=== PATIENT | female | born 1960 | race Caucasian/White ===

== ENCOUNTER 2016-07-05 14:28 | Emergency (ER) | payer MEDICAID ==
[~2016-07-05] VITALS: Ht 160 cm; Wt 71.7 kg
[2016-07-05 16:15] LABS: BASOPHIL % 0.3 % (0-2); PLATELET COUNT 226 x10^3mcL (130-400); RED CELL DISTRIBUTION WIDTH 14.1 % (11.5-14.5)
[2016-07-05 16:21] LABS: microscopic required? NO
[2016-07-05 16:31] LABS: CALCIUM 9.6 mg/dL (8.5-10.1); CARBON DIOXIDE 24.6 mmol/L (21-32); CHLORIDE SERUM 101 mmol/L (98-107); CREATININE SERUM 0.8 mg/dL (0.6-1.0); GFR1 > 60 mL/min; GLUCOSE SERUM 168 mg/dL (74-106); POTASSIUM SERUM 3.2 mmol/L (3.5-5.1); SODIUM SERUM 139 mmol/L (136-145)
[2016-07-05 16:42] LABS: ALBUMIN 4.3 g/dL (3.4-5.0); ALKALINE PHOSPHATASE 125 U/L (46-116); ALT/SGPT 28 U/L (14-59); AST/SGOT 26 U/L (15-37); BILIRUBIN TOTAL 0.53 mg/dL (0.20-1.00)
[2016-07-05 16:43] LABS: T3 TOTAL 1.19 ng/mL; TOTAL PROTEIN, SERUM 8.9 g/dL (6.4-8.2)
[2016-07-05 16:43] LABS: urine erythrocyte NEGATIVE (NEGATIVE)
[2016-07-05 16:47] LABS: CK-MB < 0.5 ng/mL (0-3.6); CREATINE KINASE 107 U/L (26-192); FREE T4 1.32 ng/dL (0.76-1.46); T4(THYROXINE) 11.7 ug/dL (4.7-13.3)
[2016-07-05 18:15] LABS: ERYTHROCYTE SED RATE 33 mm/hr (0-30)
[2016-07-05 20:41] VITALS: BP 112/62
== END 2016-07-05 20:41 | disposition home or self-care (01) ==
LOC: ED 14:28
PROVIDERS: Specialist
DX: R10.13 Epigastric pain (principal); R11.10 Vomiting, unspecified; M79.1 Myalgia; R51 Headache; R50.9 Fever, unspecified; E66.9 Obesity, unspecified; I10 Essential (primary) hypertension; E78.5 Hyperlipidemia, unspecified
CPT/HCPCS: 36600; 83880; 84439; C9113; J1885; J2405; J3010; J7030; Q0092

== ENCOUNTER 2017-11-06 10:48 | Emergency (ER) | payer MEDICAID ==
[2017-11-06 10:53] VITALS: BP 168/93; Ht 160 cm
== END 2017-11-06 12:41 | disposition home or self-care (01) ==
LOC: ED 10:48
DX: S81.812A Laceration without foreign body, left lower leg, initial encounter (principal); S81.811A Laceration without foreign body, right lower leg, initial encounter; I10 Essential (primary) hypertension; E11.9 Type 2 diabetes mellitus without complications; E78.00 Pure hypercholesterolemia, unspecified; W22.8XXA Striking against or struck by other objects, initial encounter; Y93.H2 Activity, gardening and landscaping; Y92.89 Other specified places as the place of occurrence of the external cause; Y99.8 Other external cause status
CPT/HCPCS: 90715

== ENCOUNTER 2017-12-09 15:19 | Emergency (ER) | payer MEDICAID ==
[~2017-12-09] VITALS: Ht 160 cm; Wt 72.1 kg
[2017-12-09 15:22] VITALS: BP 143/75; Ht 160 cm; Wt 72.1 kg
== END 2017-12-09 16:22 | disposition home or self-care (01) ==
LOC: ED 15:19
DX: S81.811D Laceration without foreign body, right lower leg, subsequent encounter (principal); I10 Essential (primary) hypertension; E11.9 Type 2 diabetes mellitus without complications; E78.00 Pure hypercholesterolemia, unspecified

== ENCOUNTER 2018-12-20 16:16 | Emergency (ER) | payer MEDICAID ==
[~2018-12-20] VITALS: Ht 162.6 cm; Wt 73.9 kg
[2018-12-20 16:26] VITALS: Ht 162.6 cm; Wt 73.9 kg
[2018-12-20 17:33] LABS: CALCIUM 7.5 mg/dL (8.5-10.1); CARBON DIOXIDE 26.5 mmol/L (21-32); CHLORIDE SERUM 103 mmol/L (98-107); CREATININE SERUM 0.9 mg/dL (0.6-1.0); GFR1 > 60 mL/min; GLUCOSE SERUM 261 mg/dL (74-106); POTASSIUM SERUM 4.7 mmol/L (3.5-5.1); SODIUM SERUM 137 mmol/L (136-145)
[2018-12-20 17:38] LABS: BASOPHIL % 0.2 % (0-2); PLATELET COUNT 197 x10^3mcL (130-400); RED CELL DISTRIBUTION WIDTH 13.8 % (11.5-14.5)
[2018-12-20 17:46] LABS: ALBUMIN 3.4 g/dL (3.4-5.0); ALKALINE PHOSPHATASE 125 U/L (46-116); ALT/SGPT 26 U/L (14-59); AST/SGOT 16 U/L (15-37); BILIRUBIN TOTAL 0.4 mg/dL (0.20-1.00); CHOLESTEROL 141 mg/dL (<200); LIPASE 107 IU/L (73-393); T4(THYROXINE) 7.8 ug/dL (4.7-13.3); TOTAL PROTEIN, SERUM 7.2 g/dL (6.4-8.2)
[2018-12-20 18:04] LABS: HDL CHOLESTEROL 30 mg/dL (40-60)
[2018-12-20 18:14] LABS: UA SPECIFIC GRAVITY 1.025 (1.005-1.035); microscopic required? YES; urine erythrocyte NEGATIVE (NEGATIVE)
[2018-12-20 18:22] LABS: AMPHETAMINE QUAL UR NONE DETECTED (See below)
[2018-12-20 21:25] VITALS: BP 137/80
== END 2018-12-20 21:25 | disposition home or self-care (01) ==
LOC: ED 16:16
PROVIDERS: Emergency Medicine
DX: E86.0 Dehydration (principal); R11.10 Vomiting, unspecified; R19.7 Diarrhea, unspecified; R10.13 Epigastric pain; E11.9 Type 2 diabetes mellitus without complications; I10 Essential (primary) hypertension; E78.00 Pure hypercholesterolemia, unspecified
CPT/HCPCS: J2405; J3010

== ENCOUNTER 2019-02-10 03:02 | Emergency (ER) | payer MEDICAID ==
[~2019-02-10] VITALS: Ht 160 cm; Wt 70.8 kg
[2019-02-10 03:06] VITALS: Ht 160 cm; Wt 70.8 kg
[2019-02-10 05:12] VITALS: BP 122/71
== END 2019-02-10 05:30 | disposition left against medical advice (07) ==
LOC: ED 03:02
DX: Z53.21 Procedure and treatment not carried out due to patient leaving prior to being seen by health care provider (principal)

== ENCOUNTER 2019-05-09 23:54 | Emergency (ER) | payer MEDICAID ==
[2019-05-09 23:59] VITALS: BP 169/83
== END 2019-05-10 00:41 | disposition home or self-care (01) ==
LOC: ED 23:54
DX: R05 Cough (principal); I10 Essential (primary) hypertension; E11.9 Type 2 diabetes mellitus without complications; E78.00 Pure hypercholesterolemia, unspecified
CPT/HCPCS: Q0092

== ENCOUNTER 2019-12-13 10:47 | Emergency (ER) | payer MEDICAID ==
[~2019-12-13] VITALS: Ht 157.5 cm; Wt 73.5 kg
[2019-12-13 11:18] VITALS: Ht 157.5 cm; Wt 73.5 kg
[2019-12-13 13:38] LABS: BASOPHIL % 0.5 % (0-2); PLATELET COUNT 240 x10^3mcL (130-400)
[2019-12-13 14:40] LABS: CALCIUM 9.1 mg/dL (8.5-10.1); CARBON DIOXIDE 26.6 mmol/L (21-32); CHLORIDE SERUM 103 mmol/L (98-107); CREATININE SERUM 0.8 mg/dL (0.6-1.0); GFR1 > 60 mL/min; GLUCOSE SERUM 224 mg/dL (74-106); POTASSIUM SERUM 4.6 mmol/L (3.5-5.1); SODIUM SERUM 138 mmol/L (136-145)
[2019-12-13 14:45] LABS: ALBUMIN 3.8 g/dL (3.4-5.0); ALKALINE PHOSPHATASE 137 U/L (46-116); ALT/SGPT 32 U/L (14-59); AST/SGOT 21 U/L (15-37); BILIRUBIN TOTAL 0.42 mg/dL (0.20-1.00); TOTAL PROTEIN, SERUM 8.3 g/dL (6.4-8.2)
[2019-12-13 15:03] VITALS: BP 134/74
== END 2019-12-13 15:17 | disposition home or self-care (01) ==
LOC: ED 10:47
PROVIDERS: Emergency Medicine
DX: E11.65 Type 2 diabetes mellitus with hyperglycemia (principal); I10 Essential (primary) hypertension; E11.9 Type 2 diabetes mellitus without complications; E78.00 Pure hypercholesterolemia, unspecified
CPT/HCPCS: 82962; J8597; Q0162

== ENCOUNTER 2019-12-29 00:04 | Emergency (ER) | payer MEDICAID ==
[~2019-12-29] VITALS: Ht 160 cm; Wt 73.5 kg
[2019-12-29 00:15] VITALS: Ht 160 cm; Wt 73.5 kg
[2019-12-29 01:10] LABS: BASOPHIL % 0.2 % (0-2); PLATELET COUNT 155 x10^3mcL (130-400); RED CELL DISTRIBUTION WIDTH 14.1 % (11.5-14.5)
[2019-12-29 01:14] LABS: CARBON DIOXIDE 25.9 mmol/L (21-32); CHLORIDE SERUM 101 mmol/L (98-107); CREATININE SERUM 0.8 mg/dL (0.6-1.0); GFR1 > 60 mL/min; GLUCOSE SERUM 237 mg/dL (74-106); POTASSIUM SERUM 3.4 mmol/L (3.5-5.1); SODIUM SERUM 138 mmol/L (136-145)
[2019-12-29 01:19] LABS: ALBUMIN 3.4 g/dL (3.4-5.0); ALKALINE PHOSPHATASE 104 U/L (46-116); ALT/SGPT 32 U/L (14-59); AST/SGOT 21 U/L (15-37); BILIRUBIN TOTAL 0.43 mg/dL (0.20-1.00); C REACTIVE PROTEIN 8.8 mg/dL (<=0.9); LACTIC DEHYDROGENASE (LDH) 223 U/L (100-190); TOTAL PROTEIN, SERUM 7.5 g/dL (6.4-8.2)
[2019-12-29 02:45] VITALS: BP 132/78
== END 2019-12-29 02:45 | disposition home or self-care (01) ==
LOC: ED 00:04
PROVIDERS: Emergency Medicine
DX: U07.1 COVID-19 (principal); R10.13 Epigastric pain
CPT/HCPCS: 82962; 83880; 85378; 87804; J2405; J7030